=== PATIENT | male | born 1945 | race Caucasian/White ===

== ENCOUNTER 2023-10-05 19:07 | Emergency (ER) | payer OTHER ==
[~2023-10-05] VITALS: Ht 180.3 cm; Wt 86.2 kg
[2023-10-05 19:15] VITALS: BP_SYST 112; PULSE 74; RESP 18; TEMP 98.1
[2023-10-06 00:35] VITALS: BP_SYST 117; PULSE 65; RESP 16; TEMP 98.1; O2SAT 96
== END 2023-10-06 00:15 | disposition home or self-care (01) ==
LOC: SED 19:07
DX: T83.098A Other mechanical complication of other urinary catheter, initial encounter (principal); R33.9 Retention of urine, unspecified; Y84.8 Other medical procedures as the cause of abnormal reaction of the patient, or of later complication, without mention of misadventure at the time of the procedure; Y92.89 Other specified places as the place of occurrence of the external cause
CPT/HCPCS: 99284